=== PATIENT | male | born 1965 | race Caucasian/White ===

== ENCOUNTER 2016-07-07 23:27 | Emergency (ER) | payer OTHER ==
[2016-07-08] MEDS ORDERED: Albuterol/Ipratropium NEB.SOL* Albuterol 2.5 MG/Ipratropium 0.5 MG 3 ML INH ONE (00:33)
[2016-07-08] MEDS ORDERED: predniSONE TAB* 20 MG PO ONE (00:33)
[2016-07-08 01:03] LABS: Hematocrit 46 % (42-52); Hemoglobin 15.3 g/dl (14.0-18.0); Mean Corpuscular HGB Conc 33 g/dl (31-36); Mean Corpuscular Hemoglobin 31 pg (27-31); Mean Corpuscular Volume 93 fL (80-94); Mean Platelet Volume 10 um3 (7.4-10.4); Red Blood Count 4.96 10^6/ul (4.0-5.4); Red Cell Distribution Width 13 % (10.5-15); White Blood Count 14.4 10^3/ul (3.5-10.8)
[2016-07-08 01:22] LABS: Albumin 4.1 g/dL (3.2-5.2); BUN/Creatinine Ratio 19.8 (8-20); EGFR African American 119.6 (>60); Globulin 2.6 g/dL (2-4); Potassium 3.9 mmol/L (3.5-5.0); Total Bilirubin 0.4 mg/dL (0.2-1.0); Total Protein 6.7 g/dL (6.4-8.9)
[2016-07-08 03:32] VITALS: BP 126/60
--- NOTE | 2016-07-08 07:42 | RAD ---
HISTORY: Shortness of breath COMPARISONS: None VIEWS:1: Single frontal portable view of the chest at 12:48 AM FINDINGS: LINES AND TUBES: None. CARDIOMEDIASTINAL SILHOUETTE: The cardiomediastinal silhouette is normal for portable technique. PLEURA: The costophrenic angles are sharp. No pleural abnormalities are noted. LUNG PARENCHYMA: The lungs are clear. ABDOMEN: The upper abdomen is clear. There is no subphrenic gas. BONES AND SOFT TISSUES: No bone or soft tissue abnormalities are noted. IMPRESSION: NO ACTIVE CARDIOPULMONARY DISEASE.
--- NOTE | 2016-07-09 21:27 | ED ---
Jose Davila Billy, scribed for Butch Trevino MD on 07/08/16 at 0031 . Shortness of Breath - HPI Summary HPI Summary: Lester is a 51 year-old male coming to [facility] for evaluation of SOB. Patient has had cold-like symptoms for 2 weeks and was seen by his PCP and prescribed medication. He describes cough, nasal discharge, postnasal drip. His SOB has worsened in the last 2 days. - History of Current Complaint Chief Complaint: EDShortnessOfBreath Time Seen by Provider: 07/08/16 00:02 Hx Obtained From: Patient Onset/Duration: Gradual Onset, Lasting Weeks, Still Present, Worse Since - last few days Timing: Constant Current Severity: Moderate Dyspnea At: Rest Aggrevating Factors: Nothing Alleviating Factors: Nothing Associated Signs & Symptoms: Cough (Nonproductive) - Allergy/Home Medications Allergies/Adverse Reactions: Allergies Allergy/AdvReac Type Severity Reaction Status Date / Time Codeine Allergy GI Upset Verified 01/07/16 17:21 Erythromycin Allergy Itching Verified 01/07/16 17:21 PMH/Surg Hx/FS Hx/Imm Hx Respiratory History: Reports: Hx Chronic Obstructive Pulmonary Disease (COPD) Musculoskeletal History: Reports: Hx Back Problems, 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 Colon CA to father in 50s. - Social History Alcohol Use: None Alcohol Amount: no alcohol since october 2014 Hx Substance Use: Yes Substance Use Type: Reports: Marijuana Substance Use Comment - Amount & Last Used: Once a week Hx Tobacco Use: Yes Smoking Status (MU): Current Every Day Smoker Review of Systems Negative: Fever, Chills Negative: Erythema Positive: Nasal Discharge Negative: Chest Pain Positive: Shortness Of Breath, Cough Negative: Abdominal Pain, Vomiting, Nausea Negative: Myalgia, Edema Negative: Rash All Other Systems Reviewed And Are Negative: Yes Physical Exam - Summary Physical Exam Summary: Constitutional: Well-developed, Well-nourished, Alert. (-) Distressed Skin: Warm, Dry HENT: Normocephalic; Atraumatic Eyes: Conjunctiva normal Neck: Musculoskeletal ROM normal neck. (-) JVD, (-) Stridor, (-) Tracheal deviation Cardio: Rhythm regular, rate normal, Heart sounds normal; Intact distal pulses; The pedal pulses are 2+ and symmetric. Radial pulses are 2+ and symmetric. (-) Murmur Pulmonary/Chest wall: Diminished breath sounds bilaterally. Effort normal. (-) Respiratory distress, (-) Wheezes, (-) Rales Abd: Soft, (-) Tenderness, (-) Distension, (-) Guarding, (-) Rebound Musculoskeletal: (-) Edema Lymph: (-) Cervical adenopathy Neuro: Alert, Oriented x3 Psych: Mood and affect Normal Triage Information Reviewed: Yes Vital Signs On Initial Exam: Initial Vitals BP 97/67 07/07/16 23:41 Vital Signs Reviewed: Yes - Noman Coma Scale Coma Scale Total: 15 Diagnostics - Vital Signs Vital Signs Temp Pulse Resp BP Pulse Ox 07/08/16 00:01 81 12 95 07/08/16 00:00 98.7 F 81 95 07/07/16 23:56 98.7 F 95 07/07/16 23:44 82 11 96 07/07/16 23:41 97/ - Laboratory Result Diagrams: 07/08/16 00:55 07/08/16 00:55 Lab Statement: Any lab studies that have been ordered have been reviewed, and results considered in the medical decision making process. - Radiology CXR Xray Interpretation: No Acute Changes Radiology Interpretation Completed By: ED Physician - EKG 0028 EKG Interpretation: NSR 75 bpm, no STEMI Course/Dx - Course Assessment/Plan: 51 y/o male with a hx of COPD coming to [facility] with SOB. CXR and EKG in the ED were unremarkable. Patient was given deltasone and duoneb in the ED with improvement. He will be discharged home with a prescription for albuterol and duoneb, and to follow up with PCP. - Diagnoses Provider Diagnoses: COPD exacerbation Discharge - Discharge Plan Condition: Stable Disposition: HOME Prescriptions: Albuterol HFA INHALER* [Ventolin HFA Inhaler*] 1 - 2 puff INH Q4H PRN #1 mdi PRN Reason: Cough DOXYcycline CAP(*) [DOXYcycline 100MG CAP(*)] 100 mg PO BID #10 cap predniSONE TAB* [Deltasone TAB*] 50 mg PO DAILY #5 tab Patient Education Materials: COPD (Chronic Obstructive Pulmonary Disease) (ED) Referrals: Rubia Land MD [Primary Care Provider] - The documentation as recorded by the Jose hernandez Billy accurately reflects the service I personally performed and the decisions made by me, Butch Trevino MD.
== END 2016-07-08 03:32 | disposition home or self-care (01) ==
LOC: ED 23:27
DX: J44.1 Chronic obstructive pulmonary disease with (acute) exacerbation (principal); F17.200 Nicotine dependence, unspecified, uncomplicated
CPT/HCPCS: 36415; 71010; 80053; 83605; 84484; 85025; 93005; 94640; 94760; 99283; A9270-GY; J7512

== ENCOUNTER → 2016-07-08 11:38 | Emergency (ER) | payer OTHER ==
[~2016-07-08 11:38] MED LIST: Albuterol/Ipratropium NEB.SOL* Albuterol 2.5 MG/Ipratropium 0.5 MG 3 ML INH ONE; Benzonatate CAP* 100 MG PO ONE; NS 0.9% 1000 ML* 1,000 ML IV ONE; guaiFENesin ER TAB 600 MG PO ONE; methylPREDNISolone SOD SUCC* 125 MG 2 ML VIAL IV ONE
[2016-07-08 12:35] LABS: Hematocrit 46 % (42-52); Hemoglobin 15.3 g/dl (14.0-18.0); Mean Corpuscular HGB Conc 33 g/dl (31-36); Mean Corpuscular Hemoglobin 31 pg (27-31); Mean Corpuscular Volume 94 fL (80-94); Mean Platelet Volume 10 um3 (7.4-10.4); Red Blood Count 4.95 10^6/ul (4.0-5.4); Red Cell Distribution Width 13 % (10.5-15); White Blood Count 12.1 10^3/ul (3.5-10.8)
[2016-07-08 12:54] LABS: Albumin 4.3 g/dL (3.2-5.2); BUN/Creatinine Ratio 17.4 (8-20); C Reactive Protein 14.21 mg/L (< 5.00); Calcium 9.3 mg/dL (8.6-10.3); EGFR African American 119.6 (>60); Potassium 4.1 mmol/L (3.5-5.0); Total Bilirubin 0.5 mg/dL (0.2-1.0); Total Protein 7.3 g/dL (6.4-8.9)
[2016-07-08] MEDS: Albuterol/Ipratropium NEB.SOL* Albuterol 2.5 MG/Ipratropium 0.5 MG 3 ML INH SCH ×2 (12:59→13:00)
[2016-07-08 13:36] VITALS: BP 120/61
--- NOTE | 2016-07-08 16:21 | ED ---
Grant Davila Adam, scribed for Phong Nielson MD on 07/08/16 at 1150 . Respiratory - HPI Summary HPI Summary: Pt is a 51 year old male presenting with a persistent cough for the past 2 weeks. He states that every time he lies down he coughs so hard that he feels like he is going to pass out. It is mostly a dry cough but he states that he produces phlegm approximately every 10th cough. He also c/o SOB and wheezing. He states that he had a fever but he has been on abx since he was diagnosed with bronchitis by his PCP. He came to the ED last night because he felt that the SOB was getting worse. His CXR and EKG were unremarkable and he was discharged with Rx for albuterol inhaler, prednisone, and doxycycline. PMHx of COPD. - History of Current Complaint Chief Complaint: EDRespiratoryDistress Stated Complaint: SHORT OF BREATH. Time Seen by Provider: 07/08/16 11:43 Hx Obtained From: Patient Onset/Duration: Gradual Onset, Lasting Weeks, Still Present Timing: Constant Initial Severity: Moderate Current Severity: Moderate Character: Wheezing, Cough (Productive), Dyspnea at Rest Sputum Amount: Scant Aggravating Factor(s): Recumbent Position Alleviating Factor(s): Upright Position Associated Signs and Symptoms: Fever - Allergy/Home Medications Allergies/Adverse Reactions: Allergies Allergy/AdvReac Type Severity Reaction Status Date / Time Erythromycin Allergy Itching Verified 07/08/16 16:12 Codeine AdvReac GI Upset Verified 07/08/16 16:12 PMH/Surg Hx/FS Hx/Imm Hx Musculoskeletal History: Reports: Hx Back Problems, 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 Colon CA to father in 50s. - Social History Occupation: Unemployed Lives: With Family - Domestic partner female Alcohol Use: None Alcohol Amount: no alcohol since october 2014 Hx Substance Use: Yes Substance Use Type: Reports: Marijuana Substance Use Comment - Amount & Last Used: Once a week Hx Tobacco Use: Yes Smoking Status (MU): Current Every Day Smoker Review of Systems Positive: Fever Positive: Shortness Of Breath, Cough All Other Systems Reviewed And Are Negative: Yes Physical Exam - Summary Physical Exam Summary: VITAL SIGNS: Reviewed. GENERAL: Patient is a well developed and nourished male with some distress secondary to the shortness of breath. However, he is able to speak in full sentences. HEAD AND FACE: Normocephalic and atraumatic. EYES: PERRLA, EOMI x 2, No injected conjunctiva. EARS: Hearing grossly intact. Ear canals and tympanic membranes WNL MOUTH: Dry oral mucosa. NECK: Supple, trachea is midline, no adenopathy, no JVD, no carotid bruit. CHEST: Symmetric, No intercostal or abdominal retraction, LUNGS: Diffuse bilateral wheezing and decreased breath sounds.No crackles. CVS: RRR,, S1 and S2 present, no murmurs or gallops appreciated. ABDOMEN: Soft, non-tender. No signs of distention. Positive BS. No rebound, no guarding, and no masses palpated. EXTREMITIES: FROM in all major joints, no edema, no cyanosis or clubbing. NEURO: Alert and oriented x 3. No acute neurological deficits. Speech is normal and follows commands. SKIN: Dry and warm Triage Information Reviewed: Yes Vital Signs On Initial Exam: Initial Vitals Temp Pulse Resp BP Pulse Ox 99.4 F 97 18 125/77 96 07/08/16 11:42 07/08/16 11:42 07/08/16 11:42 07/08/16 11:42 07/08/16 11:42 Vital Signs Reviewed: Yes Diagnostics - Vital Signs Vital Signs Temp Pulse Resp BP Pulse Ox 07/08/16 13:13 98.5 F 94 18 125/77 96 07/08/16 13:02 94 18 99 07/08/16 11:42 99.4 F 97 18 125/77 96 - Laboratory Lab Results: Lab Results 07/08/16 07/08/16 07/08/16 Range/Units 12:19 12:25 12:25 WBC 12.1 H (3.5-10.8) 10^3/ul RBC 4.95 (4.0-5.4) 10^6/ul Hgb 15.3 (14.0-18.0) g/dl Hct 46 (42-52) % MCV 94 (80-94) fL MCH 31 (27-31) pg MCHC 33 (31-36) g/dl RDW 13 (10.5-15) % Plt Count 204 (150-450) 10^3/ul MPV 10 (7.4-10.4) um3 Neut % (Auto) 84.0 H (38-83) % Lymph % (Auto) 8.8 L (25-47) % Pennington % (Auto) 6.9 (1-9) % Eos % (Auto) 0.1 (0-6) % Baso % (Auto) 0.2 (0-2) % Absolute Neuts (auto) 10.2 H (1.5-7.7) 10^3/ul Absolute Lymphs (auto) 1.1 (1.0-4.8) 10^3/ul Absolute Monos (auto) 0.8 (0-0.8) 10^3/ul Absolute Eos (auto) 0 (0-0.6) 10^3/ul Absolute Basos (auto) 0 (0-0.2) 10^3/ul Absolute Nucleated RBC 0 10^3/ul Nucleated RBC % 0 Sodium 136 (133-145) mmol/L Potassium 4.1 (3.5-5.0) mmol/L Chloride 104 (101-111) mmol/L Carbon Dioxide 25 (22-32) mmol/L Anion Gap 7 (2-11) mmol/L BUN 15 (6-24) mg/dL Creatinine 0.86 (0.67-1.17) mg/dL Est GFR ( Amer) 119.6 (>60) Est GFR (Non-Af Amer) 93.0 (>60) BUN/Creatinine Ratio 17.4 (8-20) Glucose 132 H (70-100) mg/dL Lactic Acid (0.5-2.0) mmol/L Calcium 9.3 (8.6-10.3) mg/dL Total Bilirubin 0.50 (0.2-1.0) mg/dL AST 14 (13-39) U/L ALT 11 (7-52) U/L Alkaline Phosphatase 93 (34-104) U/L Troponin I 0.00 (<0.04) ng/mL C-Reactive Protein 14.21 H (< 5.00) mg/L B-Natriuretic Peptide ( - 100) pg/mL Total Protein 7.3 (6.4-8.9) g/dL Albumin 4.3 (3.2-5.2) g/dL Globulin 3.0 (2-4) g/dL Albumin/Globulin Ratio 1.4 (1-3) Influenza A (Rapid) Negative (Negative) Influenza B (Rapid) Negative (Negative) 07/08/16 07/08/16 Range/Units 12:25 12:25 WBC (3.5-10.8) 10^3/ul RBC (4.0-5.4) 10^6/ul Hgb (14.0-18.0) g/dl Hct (42-52) % MCV (80-94) fL MCH (27-31) pg MCHC (31-36) g/dl RDW (10.5-15) % Plt Count (150-450) 10^3/ul MPV (7.4-10.4) um3 Neut % (Auto) (38-83) % Lymph % (Auto) (25-47) % Pennington % (Auto) (1-9) % Eos % (Auto) (0-6) % Baso % (Auto) (0-2) % Absolute Neuts (auto) (1.5-7.7) 10^3/ul Absolute Lymphs (auto) (1.0-4.8) 10^3/ul Absolute Monos (auto) (0-0.8) 10^3/ul Absolute Eos (auto) (0-0.6) 10^3/ul Absolute Basos (auto) (0-0.2) 10^3/ul Absolute Nucleated RBC 10^3/ul Nucleated RBC % Sodium (133-145) mmol/L Potassium (3.5-5.0) mmol/L Chloride (101-111) mmol/L Carbon Dioxide (22-32) mmol/L Anion Gap (2-11) mmol/L BUN (6-24) mg/dL Creatinine (0.67-1.17) mg/dL Est GFR ( Amer) (>60) Est GFR (Non-Af Amer) (>60) BUN/Creatinine Ratio (8-20) Glucose (70-100) mg/dL Lactic Acid 1.4 (0.5-2.0) mmol/L Calcium (8.6-10.3) mg/dL Total Bilirubin (0.2-1.0) mg/dL AST (13-39) U/L ALT (7-52) U/L Alkaline Phosphatase (34-104) U/L Troponin I (<0.04) ng/mL C-Reactive Protein (< 5.00) mg/L B-Natriuretic Peptide 28 ( - 100) pg/mL Total Protein (6.4-8.9) g/dL Albumin (3.2-5.2) g/dL Globulin (2-4) g/dL Albumin/Globulin Ratio (1-3) Influenza A (Rapid) (Negative) Influenza B (Rapid) (Negative) Result Diagrams: 07/08/16 12:25 07/08/16 12:25 Lab Statement: Any lab studies that have been ordered have been reviewed, and results considered in the medical decision making process. - EKG 12:41 Cardiac Rate: NL - 75 BPM EKG Rhythm: Sinus Rhythm EKG Interpretation: No ST elevations - Additional Comments Diagnostic Additional Comments: Influenza A (Rapid) - Negative Influenza B (Rapid) - Negative Troponin I - 0.00 Disposition - Course Course Of Treatment: Pt is a 51 year old male presenting with a persistent cough for the past 2 weeks. He states that every time he lies down he coughs so hard that he feels like he is going to pass out. It is mostly a dry cough but he states that he produces phlegm approximately every 10th cough. He also c/o SOB and wheezing. He states that he had a fever but he has been on abx since he was diagnosed with bronchitis by his PCP. He came to the ED last night because he felt that the SOB was getting worse. His CXR and EKG were unremarkable and he was discharged with Rx for albuterol inhaler, prednisone, and doxycycline. PMHx of COPD. Blood test are found within normal limits except for WBCs of 12.1 w/o bands, CRP 14.2. CXR No active cardiopulmonary disease. In the ED course he was given Duonebs, solumedrol and Mucinex. After medications he is feeling better however still wheezing and w/o O2 his saturation is 93-94%. He has no O2 at home. He reports that he has no oxygen at home and he is afraid of going home. He will be given another duonebs. I discuss my physical exam, findings and test results with Dr. Mcallister from the hospitalist services and she agrees to admit patient to his services. Patient is hemodynamically stable alert and oriented x 3 - Differential Dx - Cardiopulmonary Differential Diagnoses - Cardiopulmonary: Bronchitis, CHF, Other - COPD, Pneumonia - Diagnoses Provider Diagnoses: COPD exacerbation - Physician Notifications Discussed Care Of Patient With: the hospitalist at 15:10. Patient will be admitted. Discharge - Discharge Plan Condition: Stable Disposition: ADMITTED TO [facility] Prescriptions: Benzonatate [Benzonatate 200 MG CAP] 200 mg PO TID #30 cap Budesonide (Inhalation) [Budesonide] 1 mg IN BID #60 ml Doxycycline (Monohydrate) [Doxycycline Monohydrate] 100 mg PO BID #14 cap Referrals: Rubia Land MD [Primary Care Provider] - The documentation as recorded by the Grant hernandez Adam accurately reflects the service I personally performed and the decisions made by Naga eprkins Walter, MD.
--- NOTE | 2016-07-08 16:35 | CONSULT ---
Subjective Date of Service: 07/08/16 Interval History: Cough for 2 weeks. Small amount white sputum. He just got an rx for doxyclcline, a nebulizer, and albuterol to put in the nbulizer, but hasn't filled them. He does have some prednisone at home and took one talbet. Still smokes. His has quit smoking. Allergies Allergy/AdvReac Type Severity Reaction Status Date / Time Erythromycin Allergy Itching Verified 07/08/16 16:12 Codeine AdvReac GI Upset Verified 07/08/16 16:12 Home Medications Medication Instructions Recorded Confirmed Type Albuterol HFA INHALER* [Ventolin 1 - 2 puff INH Q4H PRN #1 mdi 07/08/16 Rx HFA Inhaler*] Benzonatate [Benzonatate 200 MG 200 mg PO TID #30 cap 07/08/16 Rx CAP] Budesonide (Inhalation) 1 mg IN BID #60 ml 07/08/16 Rx [Budesonide] Diclofenac 1% GEL (NF) [Voltaren 1 applic TOPICAL BID PRN 07/08/16 07/08/16 History 1% GEL (NF)] Doxycycline (Monohydrate) 100 mg PO BID #14 cap 07/08/16 Rx [Doxycycline Monohydrate] LORazepam TAB(*) [Ativan 1 MG TAB 1 mg PO BID PRN 07/08/16 07/08/16 History (*)] Pantoprazole TAB (NF) [Protonix 40 mg PO DAILY 07/08/16 07/08/16 History TAB (NF)] Sucralfate TAB* [Carafate*] 1 gm PO BID 07/08/16 07/08/16 History Venlafaxine EXT RELEASE CAP* 37.5 mg PO DAILY 07/08/16 07/08/16 History [Effexor Xr CAP*] Family History: Findings - Father had colon cancer and lung cancer. Social History: Findings - Lives with his . Applying for disability. Smoker. No alcohol abuse. Past Medical History: Findings - Eye surgery age 1 and 1. L brachial artery repair. Review of Systems - Measurements Intake and Output: Intake and Output Last 24 Hours 07/06/16 07/07/16 07/08/16 07/09/16 06:59 06:59 06:59 06:59 Weight 147 lb - Review of Systems Constitutional Symptoms: Positive: Weight Gain - a few pounds Dermatology: Positive: Normal HEENT: Positive: Normal Eyes: Positive: Normal Thyroid: Positive: Normal Pulmonary: Positive: Cough, Sputum Cardiology: Positive: Normal Gastroenterology: Positive: Normal Genital - Urinary: Positive: Normal Musculoskeletal: Positive: Joint Pain Endocrinology: Positive: Normal Hematologic/Lymphatic: Negative: Anemia, Easy Brusing, Hx Leukemia, Hx Lymphoma, Use of Anticoagulant, Use of Antiplatelet Drugs, Other Neurology: Positive: Normal Psychiatry: Positive: Anxiety, Depressed Mood Allergic/Immunologic: Negative: Hx Anaphylaxis, Hx Angioedema, Hx Environmental, Hx Seasonal, Athsma, Hx HIV, Immunocompromise, Swollen Glands LymphNodes, Other Objective Vital Signs 07/08/16 07/08/16 07/08/16 11:42 11:53 11:58 Temperature 99.4 F Pulse Rate 97 95 99 Respiratory 18 21 Rate Blood Pressure 125/77 159/143 (mmHg) O2 Sat by Pulse 96 94 96 Oximetry 07/08/16 07/08/16 07/08/16 12:00 12:30 13:00 Temperature Pulse Rate 96 88 Respiratory 18 18 Rate Blood Pressure 110/65 46/29 (mmHg) O2 Sat by Pulse 97 100 Oximetry 07/08/16 07/08/16 07/08/16 13:02 13:13 13:33 Temperature 98.5 F Pulse Rate 94 94 111 Respiratory 18 18 20 Rate Blood Pressure 125/77 120/61 (mmHg) O2 Sat by Pulse 99 96 95 Oximetry 07/08/16 07/08/16 14:00 15:00 Temperature Pulse Rate 114 110 Respiratory 30 24 Rate Blood Pressure (mmHg) O2 Sat by Pulse 93 92 Oximetry Oxygen Devices in Use Now: None Appearance: Alert, in a chair in ED room. In good spirits. Looks comfortable, occ harsh cough. Eyes: No Scleral Icterus Ears/Nose/Mouth/Throat: Clear Oropharnyx, Mucous Membranes Moist Neck: NL Appearance and Movements; NL JVP, No Thyroid Enlargement, Masses Respiratory: Symmetrical Chest Expansion and Respiratory Effort, Clear to Auscultation, Clear to Percussion Cardiovascular: NL Sounds; No Murmurs; No JVD, RRR, No Edema, - Extremities: No Edema, No Clubbing, Cyanosis, - Skin: No Rash or Ulcers, No Nodules or Sclerosis Neurological: Alert and Oriented x 3, NL Sensation Result Diagrams: 07/08/16 12:25 07/08/16 12:25 Additional Lab and Data: Lab Results 07/08/16 07/08/16 07/08/16 Range/Units 12:19 12:25 12:25 WBC 12.1 H (3.5-10.8) 10^3/ul RBC 4.95 (4.0-5.4) 10^6/ul Hgb 15.3 (14.0-18.0) g/dl Hct 46 (42-52) % MCV 94 (80-94) fL MCH 31 (27-31) pg MCHC 33 (31-36) g/dl RDW 13 (10.5-15) % Plt Count 204 (150-450) 10^3/ul MPV 10 (7.4-10.4) um3 Neut % (Auto) 84.0 H (38-83) % Lymph % (Auto) 8.8 L (25-47) % Brule % (Auto) 6.9 (1-9) % Eos % (Auto) 0.1 (0-6) % Baso % (Auto) 0.2 (0-2) % Absolute Neuts (auto) 10.2 H (1.5-7.7) 10^3/ul Absolute Lymphs (auto) 1.1 (1.0-4.8) 10^3/ul Absolute Monos (auto) 0.8 (0-0.8) 10^3/ul Absolute Eos (auto) 0 (0-0.6) 10^3/ul Absolute Basos (auto) 0 (0-0.2) 10^3/ul Absolute Nucleated RBC 0 10^3/ul Nucleated RBC % 0 Sodium 136 (133-145) mmol/L Potassium 4.1 (3.5-5.0) mmol/L Chloride 104 (101-111) mmol/L Carbon Dioxide 25 (22-32) mmol/L Anion Gap 7 (2-11) mmol/L BUN 15 (6-24) mg/dL Creatinine 0.86 (0.67-1.17) mg/dL Est GFR ( Amer) 119.6 (>60) Est GFR (Non-Af Amer) 93.0 (>60) BUN/Creatinine Ratio 17.4 (8-20) Glucose 132 H (70-100) mg/dL Lactic Acid (0.5-2.0) mmol/L Calcium 9.3 (8.6-10.3) mg/dL Total Bilirubin 0.50 (0.2-1.0) mg/dL AST 14 (13-39) U/L ALT 11 (7-52) U/L Alkaline Phosphatase 93 (34-104) U/L Troponin I 0.00 (<0.04) ng/mL C-Reactive Protein 14.21 H (< 5.00) mg/L B-Natriuretic Peptide ( - 100) pg/mL Total Protein 7.3 (6.4-8.9) g/dL Albumin 4.3 (3.2-5.2) g/dL Globulin 3.0 (2-4) g/dL Albumin/Globulin Ratio 1.4 (1-3) Influenza A (Rapid) Negative (Negative) Influenza B (Rapid) Negative (Negative) 07/08/16 07/08/16 Range/Units 12:25 12:25 WBC (3.5-10.8) 10^3/ul RBC (4.0-5.4) 10^6/ul Hgb (14.0-18.0) g/dl Hct (42-52) % MCV (80-94) fL MCH (27-31) pg MCHC (31-36) g/dl RDW (10.5-15) % Plt Count (150-450) 10^3/ul MPV (7.4-10.4) um3 Neut % (Auto) (38-83) % Lymph % (Auto) (25-47) % Brule % (Auto) (1-9) % Eos % (Auto) (0-6) % Baso % (Auto) (0-2) % Absolute Neuts (auto) (1.5-7.7) 10^3/ul Absolute Lymphs (auto) (1.0-4.8) 10^3/ul Absolute Monos (auto) (0-0.8) 10^3/ul Absolute Eos (auto) (0-0.6) 10^3/ul Absolute Basos (auto) (0-0.2) 10^3/ul Absolute Nucleated RBC 10^3/ul Nucleated RBC % Sodium (133-145) mmol/L Potassium (3.5-5.0) mmol/L Chloride (101-111) mmol/L Carbon Dioxide (22-32) mmol/L Anion Gap (2-11) mmol/L BUN (6-24) mg/dL Creatinine (0.67-1.17) mg/dL Est GFR ( Amer) (>60) Est GFR (Non-Af Amer) (>60) BUN/Creatinine Ratio (8-20) Glucose (70-100) mg/dL Lactic Acid 1.4 (0.5-2.0) mmol/L Calcium (8.6-10.3) mg/dL Total Bilirubin (0.2-1.0) mg/dL AST (13-39) U/L ALT (7-52) U/L Alkaline Phosphatase (34-104) U/L Troponin I (<0.04) ng/mL C-Reactive Protein (< 5.00) mg/L B-Natriuretic Peptide 28 ( - 100) pg/mL Total Protein (6.4-8.9) g/dL Albumin (3.2-5.2) g/dL Globulin (2-4) g/dL Albumin/Globulin Ratio (1-3) Influenza A (Rapid) (Negative) Influenza B (Rapid) (Negative) Microbiology and Other Data: Microbiology 07/08/16 11:50 Influenza Types A,B Antigen (KAM) - Final Nasopharyngeal Specimen received for Influenza A/B Molecular testing Assessment/Plan - Billing Plan By Medical Problem: 1. COPD. Rx benzonatate 200 mg tid, one dose in ED, budesonide 1 mg by neb bid , doxycycline 100 mg bid x 7 days 2. Depression. Continue venlafaxine. Fup his PCP
== END | disposition short-term general hospital (02) ==
LOC: ED 11:38
DX: J44.1 Chronic obstructive pulmonary disease with (acute) exacerbation (principal); F17.200 Nicotine dependence, unspecified, uncomplicated; Z88.5 Allergy status to narcotic agent; F32.9 Major depressive disorder, single episode, unspecified
CPT/HCPCS: 36415; 80053; 83605; 83880; 84484; 85025; 86140; 87040; 87502; 93005; 94640; 96374; 99284; A9270-GY; J2930

== ENCOUNTER 2016-09-08 17:49 | Emergency (ER) | payer OTHER ==
[2016-09-08] MEDS ORDERED: Acetaminophen TAB* 325 MG PO ONE (17:59)
[2016-09-08 18:00] VITALS: BP 121/66
--- NOTE | 2016-09-08 18:26 | UC ---
Hand/Wrist HPI - HPI Summary HPI Summary: The patient comes in today for: 1. Right wrist pain: Onset: 2 nights ago. Palliative/provocative: Grabbing and pushing with the right hand will make it worse. Quality: Sharp pain, at times and ache. Region: Right wrist. Severity: 0/10 at rest. With movement, it is 4/10 Time: Comes and goes. Associated symptoms: Event: He slammed a can against a counter about 3 times. There was no pain initially, but noticed pain 3 hours later. He iced it. He took ibuprofen also. This helped. Since then, the pain is about the same with it throbbing at night. He has not taken any medication today for his wrist. * - History Of Current Complaint Chief Complaint: UCUpperExtremity Stated Complaint: WRIST-AREA INJURY Time Seen by Provider: 09/08/16 17:54 - Allergies/Home Medications Allergies/Adverse Reactions: Allergies Allergy/AdvReac Type Severity Reaction Status Date / Time Erythromycin Allergy Itching Verified 07/08/16 16:12 Codeine AdvReac GI Upset Verified 07/08/16 16:12 PMH/Surg Hx/FS Hx/Imm Hx Previously Healthy: No - Arthritis (knees, elbow, hips, neck) Respiratory History: COPD GI/ History: Gastroesophageal Reflux - Gonzales's esophagus. Psychological History: Depression - Depression with intermittant anger episodes. - Surgical History Surgical History: None - Family History Known Family History: Positive: Hypertension, Other - Positive of AAA to mother. Colon CA to father in 50s. Negative: Diabetes - Social History Alcohol Use: None Alcohol Amount: no alcohol since october 2014 Substance Use Type: Marijuana Substance Use Comment - Amount & Last Used: Once a week Smoking Status (MU): Light Every Day Tobacco Smoker Type: Cigarettes Household Exposure Type: Cigarettes Review of Systems Constitutional: Negative Skin: Negative Eyes: Negative ENT: Negative Respiratory: Negative Cardiovascular: Negative Gastrointestinal: Negative Musculoskeletal: Arthralgia All Other Systems Reviewed And Are Negative: Yes Physical Exam Triage Information Reviewed: Yes Appearance: Well-Appearing, No Pain Distress, Well-Nourished Vital Signs: Initial Vital Signs Temp 98.1 F 09/08/16 17:55 Pulse 72 09/08/16 17:55 Resp 18 09/08/16 17:55 BP 121/66 09/08/16 17:55 Pulse Ox 98 09/08/16 17:55 Vital Signs Reviewed: Yes Eyes: Positive: Conjunctiva Clear. Negative: Discharge ENT: Positive: Hearing grossly normal. Negative: Pharyngeal erythema, Nasal congestion, Nasal drainage, TM bulging, TM dull, TM red, Tonsillar swelling, Tonsillar exudate Dental: Negative: Gross Decay/Caries @, Dental Fracture @ Neck: Positive: Supple, Nontender, No Lymphadenopathy Respiratory: Positive: Chest non-tender, Lungs clear, No respiratory distress, No accessory muscle use. Negative: Rhonchi, Wheezing Cardiovascular: Positive: RRR, No Murmur Abdomen Description: Positive: Nontender, No Organomegaly, Soft, Distended, Guarding Musculoskeletal: Positive: Strength Intact, ROM Intact, No Edema Neurological: Positive: Alert, Muscle Tone Normal Psychological: Positive: Age Appropriate Behavior, Consolable Skin: Negative: rashes, breakdown Hand/Wrist Course/Dx - Course Course Of Treatment: Patient told of the negative x-ray. Suggested splinting and anti-inflammatory Rx. He is not a candidate for a long-term NSAIDS so we elected to go to prednisone burst. - Differential Dx/Diagnosis Provider Diagnoses: Right wrist contusion/sprain. Discharge - Discharge Plan Condition: Stable Disposition: HOME Patient Education Materials: Wrist Sprain (ED) Referrals: Rubia Land MD [Primary Care Provider] - 1 Week (Please see your primary care provider in a week to see how well you are doing. If you get worse, please be seen sooner in the ER or through us.)
--- NOTE | 2016-09-08 18:37 | RAD ---
HISTORY: Right wrist trauma, subacute COMPARISONS: None VIEWS: 3, Frontal, lateral, and oblique views of the right wrist FINDINGS: BONE DENSITY: Normal. BONES: There is no displaced fracture. 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 SOFT TISSUES: Unremarkable. OTHER FINDINGS: None. IMPRESSION: NO ACUTE OSSEOUS INJURY. IF SYMPTOMS PERSIST, RECOMMEND REPEAT IMAGING.
== END 2016-09-08 18:56 | disposition home or self-care (01) ==
LOC: UCEAST 17:49
DX: S63.501A Unspecified sprain of right wrist, initial encounter (principal); S60.211A Contusion of right wrist, initial encounter; W22.09XA Striking against other stationary object, initial encounter
CPT/HCPCS: 99213; A9270-GY; G0463

== ENCOUNTER 2017-04-06 12:52 | Emergency (ER) | payer OTHER ==
[2017-04-06 15:00] VITALS: BP 108/66
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
== END 2017-04-06 16:00 | disposition home or self-care (01) ==
LOC: UCEAST 12:52
DX: J20.9 Acute bronchitis, unspecified (principal); J44.9 Chronic obstructive pulmonary disease, unspecified; Z88.1 Allergy status to other antibiotic agents; Z88.5 Allergy status to narcotic agent; F12.90 Cannabis use, unspecified, uncomplicated; F17.210 Nicotine dependence, cigarettes, uncomplicated
CPT/HCPCS: 87502; 99212; G0463